=== PATIENT | male | born 1990 | race Caucasian/White ===

== ENCOUNTER 2019-10-14 13:10 | Inpatient (IN) | payer MEDICAID ==
[~2019-10-14] VITALS: Ht 157.5 cm; Wt 46.2 kg
[~2019-10-14 13:10] MED LIST: DIVA125T2 PO; LEVE750T4 PO; LEVO25TA4 PO; QUET100T PO
[2019-10-14] MEDS ORDERED: OXCA300T29 PO (16:18)
[2019-10-14] MEDS ORDERED: TRAZ150 PO (16:18)
[2019-10-14] MEDS ORDERED: QUET200T PO ×2 (16:18)
[2019-10-14] MEDS ORDERED: FAMO20 PO (16:20)
[2019-10-14] MEDS ORDERED: LORazepam 2 MG TABLET PO PRN (16:45)
[2019-10-14] MEDS ORDERED: ZOLPIDEM TARTRATE 10 MG TABLET PO PRN (16:45)
[2019-10-14] MEDS ORDERED: HALOPERIDOL 5 MG TABLET PO PRN (16:45)
[2019-10-14] MEDS ORDERED: TRAZ-257 PO (16:47)
[2019-10-14 17:10] VITALS: BP 107/65
[2019-10-14 17:57] VITALS: BP 119/71
[2019-10-14] MEDS: LevETIRAcetam 250 MG TABLET PO SCH (21:42)
[2019-10-15 05:58] VITALS: BP 120/76
[2019-10-15] MEDS: LEVOTHYROXINE SODIUM 25 MCG TABLET PO SCH (06:41)
[2019-10-15 09:04] LABS: BASOPHILS % (AUTO) 0.3 % (0.0-2.0); EOSINOPHILS % (AUTO) 0.2 % (1.0-6.0); HEMATOCRIT 44.9 % (41-53); LYMPHOCYTES # (AUTO) 0.7 K/uL (1.0-4.8); LYMPHOCYTES % (AUTO) 15.2 % (22.0-44.0); MEAN CORPUSCULAR HEMOGLOBIN 30.6 pg (26.0-34.0); MEAN CORPUSCULAR HGB CONC 33.5 G/dL (31.0-37.0); MEAN CORPUSCULAR VOLUME 92 fL (80-100); MONOCYTES # (AUTO) 0.3 K/uL (0.1-1.0); NEUTROPHILS # (AUTO) 3.6 K/uL (1.8-7.7); NEUTROPHILS % (AUTO) 78.3 % (40.0-70.0); PLATELET COUNT (AUTO) 211 K/uL (150-450); RED BLOOD CELL COUNT(AUTO) 4.91 MIL/uL (4.50-5.90); RED CELL DISTRIBUTION WIDTH 13.8 % (11.5-14.5)
[2019-10-15] MEDS: FAMOTIDINE 20 MG TABLET PO SCH (09:50)
[2019-10-15] MEDS: LevETIRAcetam 250 MG TABLET PO SCH ×2 (09:51→16:46)
[2019-10-15 10:04] LABS: ALANINE AMINOTRANSFERASE 25 U/L (12-78); ALBUMIN 3.8 g/dL (3.4-5.0); ALKALINE PHOSPHATASE 76 U/L (46-116); ANION GAP 8 mmol/L (8-16); ASPARTATE AMINOTRANSFERASE 14 U/L (15-37); BILIRUBIN,TOTAL 0.4 mg/dL (0.1-1.0); CALCIUM, TOTAL 9.2 mg/dL (8.8-10.5); CARBON DIOXIDE 30 mmol/L (22-29); CHLORIDE 106 mmol/L (98-107); CHOLESTEROL 129 mg/dL (131-200); CREATININE 0.79 mg/dL (0.60-1.30); FREE T4 (FREE THYROXINE) 1.16 ng/dL (0.76-1.46); GLOMERULAR FILTR. RATE CALC > 60 mL/min (>60); GLUCOSE,RANDOM 92 mg/dL (70-110); HDL CHOLESTEROL 63 mg/dL (40-60); LDL CHOL (CALC.) 55 mg/dL (0-130); POTASSIUM 3.8 mmol/L (3.5-5.1); SODIUM SERUM 144 mmol/L (136-145); THYROID STIMULATING HORMONE 0.98 uIU/mL (0.36-3.74); TOTAL PROTEIN, SERUM 7.1 g/dL (6.4-8.2); TRIGLYCERIDES 56 mg/dL (15-150); UREA NITROGEN, BLOOD 12 mg/dL (7-18)
[2019-10-15 10:10] LABS: HEMOGLOBIN A1C 5.1 % (3.8-5.6)
[2019-10-15 10:32] VITALS: BP 111/74
[2019-10-15] MEDS ORDERED: MAGNESIUM HYDROXIDE SUSPENSION 30 ML UDCUP PO PRN (13:30)
[2019-10-15] MEDS ORDERED: ONDANSETRON HCL 4 MG TABLET PO PRN (13:30)
[2019-10-15] MEDS ORDERED: DOCUSATE SODIUM 100 MG CAPSULE PO PRN (13:30)
[2019-10-15] MEDS ORDERED: CloNIDine HCL 0.1 MG TABLET PO PRN (13:30)
[2019-10-15] MEDS ORDERED: GuaiFENesin/D-METHORPHAN [SUGAR-FREE] 200-20MG/10 ML SYRUP UDCUP PO PRN (13:30)
[2019-10-15] MEDS ORDERED: NICOTINE 14 MG/24 HOUR PATCH TD PRN (13:30)
[2019-10-15] MEDS ORDERED: ACETAMINOPHEN 325 MG TABLET PO PRN (13:30)
[2019-10-15] MEDS ORDERED: MAG HYDROX/AL HYDROX/SIMETH ES 30 ML SUSPENSION UDCUP PO PRN (13:30)
[2019-10-15] MEDS ORDERED: LOPERAMIDE HCL 2 MG CAPSULE PO PRN (13:30)
[2019-10-15] MEDS ORDERED: IBUPROFEN 400 MG TABLET PO PRN (13:30)
[2019-10-15] MEDS ORDERED: PETROLATUM,WHITE 28 GM JELLY TP PRN (13:30)
[2019-10-15] MEDS ORDERED: ALBUTEROL SULFATE HFA 90 MCG/PUFF 8 GM INHALER IH PRN (13:30)
[2019-10-15 16:02] VITALS: BP 133/82
[2019-10-15] MEDS ORDERED: [UNRECOGNIZED DRUG - OTHER] PO SCH (17:00)
[2019-10-15] MEDS: TraZODone HCL 100 MG TABLET PO SCH (20:45)
[2019-10-15] MEDS: QUEtiapine FUMARATE 200 MG TABLET PO SCH (20:45)
[2019-10-16 06:27] VITALS: BP 128/75
[2019-10-16] MEDS ORDERED: LEVOTHYROXINE SODIUM 25 MCG TABLET PO SCH (06:30)
[2019-10-16] MEDS: LEVOTHYROXINE SODIUM 25 MCG TABLET PO SCH (06:36)
[2019-10-16 08:10] VITALS: BP 115/67
[2019-10-16] MEDS: QUEtiapine FUMARATE 200 MG TABLET PO SCH ×2 (09:04→20:16)
[2019-10-16] MEDS: FAMOTIDINE 20 MG TABLET PO SCH (09:04)
[2019-10-16] MEDS: LevETIRAcetam 250 MG TABLET PO SCH ×2 (09:05→16:55)
[2019-10-16 16:09] VITALS: BP 124/73
[2019-10-16] MEDS: TraZODone HCL 100 MG TABLET PO SCH (20:17)
[2019-10-17 05:27] VITALS: BP 121/72
[2019-10-17] MEDS: LEVOTHYROXINE SODIUM 25 MCG TABLET PO SCH (06:50)
[2019-10-17] MEDS: LevETIRAcetam 250 MG TABLET PO SCH ×2 (08:50→17:09)
[2019-10-17] MEDS: FAMOTIDINE 20 MG TABLET PO SCH (08:50)
[2019-10-17] MEDS: QUEtiapine FUMARATE 200 MG TABLET PO SCH ×2 (08:50→20:50)
[2019-10-17 09:38] VITALS: BP 118/74
[2019-10-17] MEDS: TraZODone HCL 100 MG TABLET PO SCH (20:50)
[2019-10-18 02:30] VITALS: BP 120/73
[2019-10-18] MEDS: LEVOTHYROXINE SODIUM 25 MCG TABLET PO SCH (06:44)
[2019-10-18 08:03] VITALS: BP 117/61
[2019-10-18] MEDS: QUEtiapine FUMARATE 200 MG TABLET PO SCH (08:32)
[2019-10-18] MEDS: FAMOTIDINE 20 MG TABLET PO SCH (08:32)
[2019-10-18] MEDS: LevETIRAcetam 250 MG TABLET PO SCH (08:33)
[2019-10-18] MEDS ORDERED: TRAZ-257 PO (09:15)
[2019-10-18] MEDS ORDERED: QUET200T29 PO (09:15)
[2019-10-18] MEDS ORDERED: FAMO20 PO (09:35)
[2019-10-18] MEDS ORDERED: LEVO25TA9 PO (09:35)
[2019-10-18] MEDS ORDERED: LEVE250T55 PO (09:35)
== END 2019-10-18 14:05 | disposition home or self-care (01) | DRG 750 ==
LOC: B3A 16:54
DX: F20.0 Paranoid schizophrenia (principal); F79 Unspecified intellectual disabilities; E03.9 Hypothyroidism, unspecified; G40.909 Epilepsy, unspecified, not intractable, without status epilepticus; K21.9 Gastro-esophageal reflux disease without esophagitis; Z79.899 Other long term (current) drug therapy; Z91.012 Allergy to eggs
CPT/HCPCS: 83036; 84439; 84443